=== PATIENT | male | born 1975 | race Caucasian/White ===

== ENCOUNTER 2016-07-24 14:40 | Outpatient (CLI) | payer OTHER | END 2016-07-24 14:41 | disposition home or self-care (01) | DX: G47.30 Sleep apnea, unspecified (principal) ==

== ENCOUNTER 2016-08-28 15:16 | Outpatient (CLI) | payer OTHER | END 2016-08-28 15:17 | disposition home or self-care (01) | DX: G47.30 Sleep apnea, unspecified (principal); G47.8 Other sleep disorders; R06.83 Snoring; G47.10 Hypersomnia, unspecified ==

== ENCOUNTER 2016-09-16 19:37 | Outpatient (CLI) | payer OTHER | END 2016-09-16 19:38 | disposition home or self-care (01) | DX: G47.33 Obstructive sleep apnea (adult) (pediatric) (principal); Z68.32 Body mass index [BMI] 32.0-32.9, adult ==

== ENCOUNTER 2016-09-26 14:03 | Outpatient (CLI) | payer OTHER | END 2016-09-26 14:04 | disposition home or self-care (01) | LOC: SC 14:03 | PROVIDERS: ATTEND Nurse Practitioner Family | DX: G47.33 Obstructive sleep apnea (adult) (pediatric) (principal) | CPT/HCPCS: 99212; 99214 ==

== ENCOUNTER 2016-11-12 15:47 | Outpatient (CLI) | payer OTHER | END 2016-11-12 15:48 | disposition home or self-care (01) | DX: G47.33 Obstructive sleep apnea (adult) (pediatric) (principal) ==

== ENCOUNTER 2017-03-05 13:50 | Outpatient (CLI) | payer OTHER | END 2017-03-05 13:51 | disposition home or self-care (01) | LOC: SC 13:50 | PROVIDERS: ATTEND Nurse Practitioner Family | DX: G47.33 Obstructive sleep apnea (adult) (pediatric) (principal) | CPT/HCPCS: 99212; 99214 ==

== ENCOUNTER 2018-03-12 14:47 | Outpatient (CLI) | payer OTHER | END 2018-03-12 14:48 | disposition home or self-care (01) | LOC: SC 14:47 | PROVIDERS: ATTEND Nurse Practitioner Family | DX: G47.33 Obstructive sleep apnea (adult) (pediatric) (principal) | CPT/HCPCS: 99212; 99214 ==

== ENCOUNTER 2019-07-14 12:55 | Outpatient (CLI) | payer OTHER ==
--- NOTE | 2019-07-14 14:06 | SLEEP CARE CONSULTATION ---
Information from patient questionnaire entered by Meryl Curran. I have reviewed and concur with the information entered by Meryl Curran. This document represents the service I personally performed and the decisions made by me, Lu Khanna, RN, MSN, FACILITY MAINTENANCE TECHNICIAN. History of Present Illness Previous diagnosis: Mild, Obstructive Sleep Apnea-Hypopnea Syndrome AHI: 12.0 Reason for follow up: annual (last seen 2018) Equipment type: CPAP Equipment obtained from: [employer] Mask style: Nasal (Dreamwear) Mask brand: Respironics Backup mask available: Yes Last cushion change: 10 days ago CPAP Compliance Data - Data Reviewed with Patient Average duration of nightly device use: 6.1 Compliance rate %: 89.4 (180 days) Current pressure setting (cmH2O): 6.5 Humidity settin Heated hose settin Average residual AHI: 4.1 Average large leak: 5 sec Subjective Missed days of use due to: reports: illness Patient concerns: denies: aerophagia, mask discomfort, air blowing in eyes, mask leak noise, condensation in mask/hose, nasal congestion, dry mouth, nose, throat, epistaxis Observed to snore while using device: No Current pressure setting perceived as: comfortable On therapy, patient: reports: sleeping better, awakening more refreshed, being more awake and alert during the day, more rested overall. denies: drowsiness while driving Initial [place] Sleepiness Scale score: 13 Current [place] Sleepiness Scale score: 2 Allergies and Home Medications Known drug allergies: No Home medication list reviewed: Yes (no changes) Allergy and home medication list: amlodipine 5mg daily naproxen prn - rare simvastatin 10mg daily omeprazole 20mg daily Review of Systems Review of systems same as previous: Yes Physical Exam Blood Pressure: 138/80 Cuff size: long Heart Rate: 74 O2 Saturation: 98 Height: 5 ft 9.5 in Weight: 249 lb 12.8 oz Weight change since last visit: gained 9 pounds Body Mass Index: 36.3 BMI Classification: Obesity Class 2 Impression and Plan 1. Obstructive Sleep Apnea-Hypopnea Syndrome, mild, with good treatment compliance and good apnea control. On CPAP therapy, the patient has better sleep quality and is more rested overall. He tried to change the humidity settings and heated hose but showed locked. I showed him how to change settings on sample device and explained rationale for change. Printed instructions given. Patient has also gained some weight. I explained how his weight can increase his apnea risks and CPAP pressure as well as overall health risks. In addition, increased weight can increase blood pressure. He is advised to lose weight and consider a diet consultation if unable achieve weight loss goals with rationale discussed. Symptoms to report for pressure adjustment discussed if significant weight loss. Patient's apnea severity and rationale for treatment to reduce apnea, improve sleep quality and reduce cardiovascular and cerebrovascular events was reviewed. Since his apnea is more severe supine, he is advised to avoid supine sleeping if unable to use CPAP. I also reviewed the benefit of consistent device use of CPAP for hypertension, gastric reflux. * * Continue CPAP pressure at 6.5 cmH2O * Adjust humidity and heated hose to comfort * Notify me if snoring with mask or feeling that the pressure is too much or too little * Attempt to lose weight * Consider diet consult * Call this office if any problems using CPAP * Return for follow up in 1 year , or sooner if concerns arise Time Spent with Patient (minutes): 25 I spent 100% of this visit face to face with the patient with greater than 50% of this was spent time counseling the patient and coordination of care.
[2019-07-14 14:07] VITALS: BP 138/80
== END 2019-07-14 12:56 | disposition home or self-care (01) ==
LOC: SC 12:55
PROVIDERS: ATTEND Nurse Practitioner Family
DX: G47.33 Obstructive sleep apnea (adult) (pediatric) (principal); E66.9 Obesity, unspecified; Z68.36 Body mass index [BMI] 36.0-36.9, adult
CPT/HCPCS: 99212; 99214

== ENCOUNTER 2020-06-22 15:11 | Outpatient (CLI) | payer OTHER ==
--- NOTE | 2020-06-22 15:54 | SLEEP CARE CONSULTATION ---
Information from patient questionnaire entered by Cheli Proctor. I have reviewed and concur with the information entered by Cheli Proctor. This document represents the service I personally performed and the decisions made by , Sarah Jacobo ARNP. History of Present Illness Service Date and Time: 06/22/2020 1511 Previous diagnosis: Mild, Obstructive Sleep Apnea-Hypopnea Syndrome AHI: 12.0 Reason for follow up: annual (Last seen 06/2019) Equipment type: CPAP [facility] Mask style: Nasal pillows (Dreamwear) Mask brand: Respironics Backup mask available: Yes (old mask) Last cushion change: last week Year and Where: 2015 and 2016 [facility] Type of Sleep Study: Polysomnography HPI additional information: KARINA ARRIETA was diagnosed to have mild, AHI 12.0, obstructive sleep apnea- hypopnea syndrome and returned today for CPAP therapy annual follow-up. CPAP Compliance Data - Data Reviewed with Patient Average duration of nightly device use: 6 h 30 min Compliance rate %: 97.2 Current pressure setting (cmH2O): 6.5 Humidity settin Heated hose settin Average residual AHI: 5.1 Average large leak: 2 sec Subjective Missed days of use due to: reports: other (Fell asleep before putting on mask) Patient concerns: reports: nasal congestion. denies: aerophagia, mask discomfort, air blowing in eyes, mask leak noise, condensation in mask/hose, dry mouth, nose, throat, epistaxis, other Observed to snore while using device: No Current pressure setting perceived as: comfortable On therapy, patient: reports: sleeping better, awakening more refreshed, being more awake and alert during the day, more rested overall. denies: drowsiness while driving Initial [place] Sleepiness Scale score: 13 (in 2016) Current [place] Sleepiness Scale score: 1 Allergies and Home Medications Drug allergies reviewed: Yes (NKDA) Home medication list reviewed: Yes (same medications with some increased doses) Review of Systems Review of systems same as previous: Yes (no changes) Physical Exam Heart Rate: 76 O2 Saturation: 98 Height: 5 ft 9.5 in Weight: 253 lb Body Mass Index: 36.8 BMI Classification: Obese Impression and Plan 1. Obstructive Sleep Apnea-Hypopnea Syndrome, mild, with good treatment compliance and fair apnea control. On CPAP therapy, the patient has better sleep quality and is more rested overall. He has had some problem with nasal congestion with change of the weather. Nasal congestion can be reduced with increasing the CPAP humidity as shown on sample device. The heated hose can be adjusted higher if condensation with higher humidity setting. Saline nasal spray sample was also given to use prior to CPAP to clear nasal secretions and wash off any nasal allergens to facilitate nasal breathing. In addition, a steamy shower before bed will often assist nasal drainage. Patient's apnea severity and rationale for treatment to reduce apnea, improve sleep quality and reduce cardiovascular and cerebrovascular events was reviewed. I also reviewed the benefit of consistent device use of CPAP for hypertension, and gastric reflux. * Changeauto CPAP pressure to 7 cmH2O * Notify me if snoring with mask or feeling that the pressure is too much or too little * Attempt to lose weight * Call this office if any problems using CPAP * Return for follow up in 1 year , or sooner if concerns arise Counseling Topics: Spare mask Visit Type: In Office Time Spent with Patient (minutes): 18 Provider Statement: I spent 100% of the Face to Face Visit with the patient with greater than 50% spent counseling the patient and coordination of care.
== END 2020-06-22 15:12 | disposition home or self-care (01) ==
LOC: SC 15:11
PROVIDERS: ATTEND Nurse Practitioner Family
DX: G47.33 Obstructive sleep apnea (adult) (pediatric) (principal); E66.9 Obesity, unspecified; Z68.36 Body mass index [BMI] 36.0-36.9, adult
CPT/HCPCS: 99212; 99213